=== PATIENT | female | born 1965 | race African-American/Black ===

== ENCOUNTER 2017-12-11 14:34 | Emergency (ER) | payer OTHER, SELFPAY ==
[~2017-12-11 14:34] MED LIST: ISOVUE-370 76%-LOCM 1 ML ONE
[2017-12-11] MEDS ORDERED: Morphine 10 MG/ML VIAL ONE (14:59)
[2017-12-11] MEDS ORDERED: Ondansetron ODT 4 MG TAB ONE (15:06)
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
== END 2017-12-11 16:58 | disposition home or self-care (01) ==
LOC: ERS 14:34
DX: S16.1XXA Strain of muscle, fascia and tendon at neck level, initial encounter (principal); M54.5 Low back pain; I10 Essential (primary) hypertension; V89.2XXA Person injured in unspecified motor-vehicle accident, traffic, initial encounter
CPT/HCPCS: 70450; 71260; 72125; 74177; 96374; J2270; Q0162

== ENCOUNTER 2017-12-12 14:37 | Emergency (ER) | payer OTHER, SELFPAY ==
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
== END 2017-12-12 17:13 | disposition home or self-care (01) ==
LOC: ERS 14:37
DX: M25.562 Pain in left knee (principal); M25.561 Pain in right knee; M79.672 Pain in left foot; I10 Essential (primary) hypertension; Z79.899 Other long term (current) drug therapy; V49.9XXA Car occupant (driver) (passenger) injured in unspecified traffic accident, initial encounter

== ENCOUNTER 2017-12-22 08:00 | Emergency (ER) | payer OTHER, SELFPAY ==
[2017-12-22] MEDS ORDERED: Acetaminophen 325 MG TAB ONE (08:54)
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
[2017-12-22 11:00] LABS: Anion Gap 12 mmol/L (10-20); BUN (Urea Nitrogen) 16 mg/dL (9.8-20.1); Calc. Creatinine Clearance 0 mL/min (70-130); Calcium 9.9 mg/dL (7.8-10.44); Carbon Dioxide 29 mmol/L (22-29); Chloride 104 mmol/L (98-107); Estimated GFR-MDRD 87; Glucose 89 mg/dL (70-105); Potassium 4.5 mmol/L (3.5-5.1); Sodium 140 mmol/L (136-145); Uric Acid 5.2 mg/dL (2.6-6.0)
== END 2017-12-22 11:09 | disposition home or self-care (01) ==
LOC: ERS 08:00
DX: M79.672 Pain in left foot (principal); M19.90 Unspecified osteoarthritis, unspecified site; I10 Essential (primary) hypertension; G56.03 Carpal tunnel syndrome, bilateral upper limbs; Z79.899 Other long term (current) drug therapy
CPT/HCPCS: 36415; 80048; 84550